=== PATIENT | male | born 1945 | race Caucasian/White ===

== ENCOUNTER 2017-10-25 07:02 | Day surgery (SDC) | payer MEDICARE, BC ==
[2017-10-25] MEDS ORDERED: fentaNYL 100 MCG/2 ML SDV ONE (07:39)
[2017-10-25] MEDS ORDERED: Propofol 200 MG/20 ML SDV ONE (07:39)
[2017-10-25] MEDS ORDERED: Sodium Chloride 0.9% 1,000 ML IV SCH (08:15)
[2017-10-25 10:49] VITALS: BP 130/85
--- NOTE | 2017-10-25 10:58 | OR ---
DATE OF PROCEDURE: 10/25/2017 PROCEDURE: Colonoscopy. FINDINGS: 1. Cecal polyp, approximately 5 mm, completely removed using cold biopsy forceps. 2. External hemorrhoids, mild. 3. No other gross abnormalities. COMPLICATIONS: None. SVP MONETIZATION: None. PREOPERATIVE DIAGNOSIS: Screening colonoscopy. POSTOPERATIVE DIAGNOSIS: Screening colonoscopy. RISKS: Risks, benefits, alternatives, and limitations including, but not limited to infection, bleeding, and perforation were explained to the patient, who wished to proceed. PROCEDURE IN DETAIL: The patient was placed in left lateral decubitus position. Digital rectal exam was performed without abnormality. The scope was introduced and advanced atraumatically to the ileocecal valve. In the cecum itself, there was a small 5 mm polyp. This was identified and completely removed using cold biopsy forceps. The scope was brought back through the ascending, transverse, descending colon, and retroflexed. No diverticulosis. No old or new blood. No colitis. No other areas of concern. On retroflex, small hemorrhoids. The patient tolerated the procedure well. Gualberto Gu MD /[id number]
== END 2017-10-25 10:49 | disposition home or self-care (01) ==
LOC: JP.SDS 07:02
PROVIDERS: ATTEND Surgery
DX: Z12.11 Encounter for screening for malignant neoplasm of colon (principal); D12.0 Benign neoplasm of cecum; K64.4 Residual hemorrhoidal skin tags; Z86.010 Personal history of colon polyps; Z80.0 Family history of malignant neoplasm of digestive organs
CPT/HCPCS: 45380; 88305; J2704; J3010; J7030

== ENCOUNTER 2020-10-08 09:16 | Day surgery (SDC) | payer BC, MEDICARE ==
[2020-10-08] MEDS ORDERED: Propofol 200 MG/20 ML SDV ONE (09:55)
[2020-10-08] MEDS ORDERED: fentaNYL 100 MCG/2 ML SDV ONE (09:55)
[2020-10-08] MEDS ORDERED: Midazolam 1 MG/ML 2 ML SDV ONE (09:55)
[2020-10-08] MEDS ORDERED: Sodium Chloride 0.9% 1,000 ML IV SCH (10:00)
[2020-10-08 12:51] VITALS: BP 156/70; PULSE 56
--- NOTE | 2020-10-11 12:46 | OR ---
DATE OF PROCEDURE: 10/08/2020 SURGEON: Gualberto Gu MD PROCEDURE: Colonoscopy. FINDINGS: Normal colonoscopy. PREOPERATIVE DIAGNOSIS: Screening colonoscopy. POSTOPERATIVE DIAGNOSIS: Screening colonoscopy. RISKS: Risks, benefits, alternatives, and limitations including, but not limited to infection, bleeding, perforation, false positives and false negatives were explained to the patient and he wished to proceed. PROCEDURE IN DETAIL: The patient was placed in left lateral decubitus position. Digital rectal exam was performed without abnormality. Scope was introduced and advanced atraumatically to the ileocecal valve. A photo was taken of this. Scope was brought back to the ascending, transverse, descending colon, and retroflexed. No evidence of old or new blood. No masses. No polyps. No diverticulosis. Greater than 8 minutes was spent removing the scope. Prep was acceptable, approximately 90% of the luminal surface could be seen. The patient tolerated the procedure well. Gualberto Gu MD /[id number]
--- NOTE | 2020-10-12 10:58 | OR ---
DATE OF PROCEDURE: SURGEON: Gualberto Gu MD ADDENDUM: PREOPERATIVE DIAGNOSIS: Family history of colorectal cancer. POSTOPERATIVE DIAGNOSIS: Family history of colorectal cancer. Gualberto Gu MD /[id number]
== END 2020-10-08 13:00 | disposition home or self-care (01) ==
LOC: JP.SDS 09:16
PROVIDERS: ATTEND Surgery
DX: Z12.11 Encounter for screening for malignant neoplasm of colon (principal); Z80.0 Family history of malignant neoplasm of digestive organs
CPT/HCPCS: G0105; J2250; J2704; J3010; J7030